=== PATIENT | male | born 1955 | race Caucasian/White ===

== ENCOUNTER 2018-10-27 10:08 | Day surgery (SDC) | payer BC ==
[~2018-10-27] VITALS: Ht 172.7 cm; Wt 105.2 kg
--- NOTE | ~2018-10-27 | OP ---
PATIENT NAME: NATASHA JONES JR MEDICAL RECORD: [id number] :55 LOCATION:D.OPS ADMISSION DATE: SURGEON: ALTAF SCHREIBER MD DATE OF OPERATION: 10/27/2018 PREOPERATIVE DIAGNOSES: 1. Right inguinal hernia. 2. Hypertension. POSTOPERATIVE DIAGNOSES: 1. Right inguinal hernia. 2. Hypertension. PROCEDURE: Right inguinal hernia repair with extended PHS mesh. SURGEON: Altaf Schreiber MD REPORT OF PROCEDURE: The patient's right groin was prepped and draped in sterile fashion. An oblique incision was made above the inguinal ligament. Electrocautery was used to dissect through the subcutaneous tissues to the external oblique fascia. This fascia was opened up to the external ring using electrocautery. A Emily was then placed around the spermatic cord. Inspection showed there was an indirect hernia defect. This defect was densely adherent to the spermatic cord. We were able to dissect this free. I then opened up the hernia defect and could see that the patient's appendix was actually adherent to the tissues, consistent with Amyand's hernia. We placed the hernia sac and its contents back down into the abdominal cavity. The preperitoneal space of Retzius was opened up in all directions. An extended PHS mesh was inserted and sutured down on all sides using multiple interrupted #0 Vicryls. The wound was then irrigated out with normal saline. The external oblique fascia was closed with running 2-0 Vicryl, the Salma's was closed with interrupted 3-0 Vicryl, and the skin was closed with running subcutaneous 5-0 Monocryl. A 10 mL of 0.25% Marcaine with epinephrine was infused into the surrounding tissues and the wound was dressed appropriately. COMPLICATIONS: None. CONDITION: Stable. ANESTHESIA: General endotracheal and local. BLOOD LOSS: Minimal. TRANSINT:[id number] Voice Confirmation ID: [id number] DOCUMENT ID: [id number] ALTAF SCHREIBER MD CC: [id number] OQUENDO [id number] DICTATION DATE: 10/27/181434 WAREHOUSEMAN: 10/27/18 [address] [facility] 10/27/18 [facility] [address] [place] [address]
[~2018-10-27 10:08] MED LIST: LISINOPRIL-HCT1 EAC8 PO; NORVASC10 MG PO
[2018-10-27 10:51] LABS: HEMATOCRIT 39.5 % (42.0-54.0); HEMOGLOBIN 13.9 g/dL (13.5-17.5); LYMPHOCYTES 32.1 % (15-50); MCH 34.2 pg (26.0-34.0); MCHC 35.2 g/dL (31.0-37.0); MCV 97.1 fL (80.0-100.0); MEAN PLATELET VOLUME 9.5 fL (7.4-10.4); NEUTROPHILS 60.9 % (40-80); PLATELET COUNT 210 10x3/uL (130-400); RBC 4.07 10x6/uL (4.20-6.10); RDW 13.3 % (11.5-14.5); WBC 4.1 10x3/uL (4.8-10.8)
[2018-10-27 10:57] LABS: CALC OSMOLALITY 285 mosm/kg (275-300); CALCIUM 8.4 mg/dL (8.5-10.1); CARBON DIOXIDE 28.7 mmol/L (21.0-32.0); CHLORIDE - SERUM 105 mmol/L (98-107); CREATININE - SERUM 0.8 mg/dL (0.6-1.3); GLUCOSE 94 mg/dL (74-106); POTASSIUM - SERUM 3.5 mmol/L (3.5-5.1); SODIUM 143 mmol/L (136-145); UREA NITROGEN 16 mg/dL (7-18); eGFR NON AFRICAN AMERICAN > 90 mL/min (90-120)
[2018-10-27 11:23] VITALS: BP 126/74; Ht 172.7 cm; Wt 105.2 kg
[2018-10-27] MEDS ORDERED: HYDROCODON-ACE1 EA10 PO (14:32)
--- NOTE | 2018-10-27 16:45 | NUR ---
REC'D FROM [facility]. DRESSING CDI TO RIGHT GROIN. FAMILY AT BEDSIDE. ASKED PATIENT WHAT HE WOULD LIKE TO DRINK AND PT RELATED "NOTHING LONG I'VE GOT TO PEE LIKE THIS." AMBULATED TO BATHROOM. VOIDED WITHOUT DIFFICULTY. ICE WATER BROUGHT TO PATIENT.
--- NOTE | 2018-10-27 17:00 | NUR ---
DC'D HOME WITH FAMILY VIA PRIVATE VEHICLE. TAKEN TO VEHICLE VIA WC. STABLE AT TIME OF DC.
--- NOTE | 2018-10-27 17:15 | NUR ---
FL DIET BROUGHT TO PATIENT. FAMILY AT BEDSIDE. VERBALIZES PAIN WITH MOVEMENT AND COUGHING.
--- NOTE | 2018-10-27 17:45 | NUR ---
TOLERATED FL DIET. IV DC'D WITH CATHETER INTACT. WRITTEN AND VERBAL DC INST. GIVEN TO PT ALONG WITH RX. VERBALIZED UNDERSTANDING.
== END 2018-10-27 17:00 | disposition home or self-care (01) ==
LOC: D.OPS 10:08 → D.PAN 12:45 → D.OPS 17:00
PROVIDERS: ATTEND Surgery
DX: K40.90 Unilateral inguinal hernia, without obstruction or gangrene, not specified as recurrent (principal); I10 Essential (primary) hypertension; Z01.812 Encounter for preprocedural laboratory examination